=== PATIENT | female | born 2000 | race Caucasian/White ===

== ENCOUNTER 2024-07-11 12:07 | Emergency (ER) | payer MEDICAID ==
[~2024-07-11] VITALS: Ht 162.6 cm; Wt 59.1 kg
[2024-07-11] MEDS ORDERED: NOVOLOG FLEX100 U/ML (12:21)
[2024-07-11] MEDS ORDERED: LEVEMIR100 U/M1 SQ ×2 (12:21→12:22)
[2024-07-11] MEDS ORDERED: LAMICTAL150 MG PO (12:44)
[2024-07-11] MEDS ORDERED: LAMICTAL 100MG100 MG PO (12:44)
[2024-07-11] MEDS ORDERED: NS 1,000 ML IV ONE (12:45)
[2024-07-11 13:07] LABS: BASO # 0.02 K/mm3 (0.02-0.10); EOS # 0.05 K/mm3 (0.04-0.40); EOS % 0.9 % (1.0-5.0); HEMATOCRIT 37.8 % (37.0-47.0); HEMOGLOBIN 12.9 g/dL (12.5-16.0); LYMPH# 1.14 K/mm3 (1.50-4.00); MEAN CELL VOLUME 86 fl (78-100); MEAN CORPUSCULAR HEMOGLOBIN 29 pg (27-31); MEAN CORPUSCULAR HGB CONC 34 g/dL (33-37); MEAN PLATELET VOLUME 9.1 fl (7.4-10.4); MONO # 0.41 K/mm3 (0.20-0.80); NEU # 4.14 K/mm3 (1.40-6.50); PLATELET COUNT 300 K/mm3 (130-400); RED BLOOD COUNT 4.41 M/mm3 (4.10-5.30); WHITE BLOOD COUNT 5.8 K/mm3 (4.8-10.8)
[2024-07-11 13:13] LABS: ALBUMIN 4.5 g/dL (3.5-5.0)
[2024-07-11 13:15] LABS: CALCIUM 9.9 mg/dL (8.3-10.5)
[2024-07-11 13:16] LABS: TOTAL PROTEIN 7.1 g/dL (6.4-8.3)
[2024-07-11 13:18] LABS: TOTAL BILIRUBIN 0.2 mg/dL (0.2-1.2)
[2024-07-11 13:34] LABS: URINE APPEARANCE CLEAR (CLEAR); URINE BILIRUBIN NEGATIVE (NEGATIVE); URINE BLOOD TRACE-INTACT (NEGATIVE); URINE COLOR YELLOW (YELLOW); URINE GLUCOSE 3+ (NEGATIVE); URINE KETONE NEGATIVE (NEGATIVE); URINE NITRATE NEGATIVE (NEGATIVE); URINE PROTEIN(semi-quant) NEGATIVE (NEGATIVE)
[2024-07-11 13:35] LABS: URINE LEUKOCYTE ESTERASE NEGATIVE (NEGATIVE); URINE WBC 0-1 /hpf (0-3)
[2024-07-11 14:00] VITALS: BP 103/64
== END 2024-07-11 14:08 | disposition home or self-care (01) ==
LOC: ED 12:07
PROVIDERS: Family Medicine
DX: E10.649 Type 1 diabetes mellitus with hypoglycemia without coma (principal)
CPT/HCPCS: J7030